=== PATIENT | male | born 1940 | race Caucasian/White ===

== ENCOUNTER 2019-05-14 10:48 | Emergency (ER) | payer MEDICARE, OTHER ==
[2019-05-14 11:22] VITALS: BP 156/69; PULSE 67; TEMP 97.9; BMI 23.1
--- NOTE | 2019-05-14 11:30 | PDOC ---
History of Present Illness - General Chief Complaint: Pain Stated Complaint: RT SHOULDER PAIN Time Seen by Provider: 05/14/19 11:30 History Source: Patient - History of Present Illness Initial Comments: 05/14/19 11:36 Chief complaint: Right shoulder pain Patient is an 78-year-old male with no significant medical history, does not take any meds who states he has few days of right shoulder pain, worse in the last day. Today he has pain when he tries to lift it up. Patient has no illness, no fever, no chest pain, no shortness of breath or any other complaints. He has not taken any medication for it. He has no numbness or swelling. GENERAL/CONSTITUTIONAL: No fever, weakness. dizziness HEAD, EYES, EARS, NOSE AND THROAT: No change in vision. No ear pain or discharge. No sore throat. CARDIOVASCULAR: No chest pain RESPIRATORY: No shortness of breath or cough GASTROINTESTINAL: No pain, nausea, vomiting, diarrhea or constipation GENITOURINARY: No dysuria MUSCULOSKELETAL: No neck or back pain, + right shoulder SKIN: No rash NEUROLOGIC: No headache, vertigo, loss of consciousness, or loss of sensation. GENERAL: The patient is awake, alert, and fully oriented, in no acute distress. HEAD: Normal with no signs of trauma. EYES: Pupils equal, round and reactive to light, sclera anicteric, conjunctiva clear. ENT: pharynx: no erythema, no exudate, uvula midline NECK: supple CHEST: clear, nontender, rr ABD: soft, nontender BACK: no tenderness or signs of injury EXTREMITIES: Mild tenderness to the right shoulder, no deformity, no signs of infection, no swelling, limited range of motion, neurovascular intact. Rest of extremities, normal range of motion, no edema. NEUROLOGICAL: Normal speech, normal gait. Cranial nerves II through XII grossly intact, no gross focal abnormalities SKIN: Warm, Dry Past History - Past Medical History Allergies/Adverse Reactions: Allergies Allergy/AdvReac Type Severity Reaction Status Date / Time No Known Allergies Allergy Verified 11/17/11 19:42 Home Medications: Ambulatory Orders Lidocaine 5% Patch [Lidoderm -] 1 patch TP DAILY #5 patch 05/14/19 Cancer: Yes (colon ca with resection) Diabetes: Yes - Surgical History Appendectomy: Yes Orthopedic Surgery: Yes (Back Surgery) - Immunization History Td Vaccination: Yes - Psycho Social/Smoking Cessation Hx Smoking Status: Yes Smoking History: Former smoker Have you smoked in the past 12 months: No Number of Cigarettes Smoked Daily: 0 If you are a former smoker, when did you quit?: 22 years ago Information on smoking cessation initiated: No Hx Alcohol Use: Yes (Occasional) Drug/Substance Use Hx: Yes Substance Use Type: Alcohol Hx Substance Use Treatment: No *Physical Exam - Vital Signs Last Vital Signs Temp Pulse Resp BP Pulse Ox 97.9 F 67 19 156/69 99 05/14/19 11:19 05/14/19 11:19 05/14/19 11:19 05/14/19 11:19 05/14/19 11:19 Medical Decision Making - Medical Decision Making 05/14/19 11:38 78-year-old male with no significant medical problems, not taking medications with right shoulder pain for a few days, no other complaints, no chest pain, no shortness of breath, no illness. Patient has pain when he moves the shoulder, nontraumatic. Exam of the shoulder shows no significant clinical findings other than mild tenderness and decreased range of motion. Neurovascular is intact. Patient is not taking pain medicines. Will give Tylenol, x-ray shoulder and reassess 05/14/19 13:08 X-ray shows no acute issue, has calcifications, consistent with patient's presentation. Will prescribe Tylenol and lidocaine patches. Patient will need to follow-up with orthopedist for further evaluation. Discussed issues, findings, results, applicable medications and treatments and follow-up. All these were understood and all questions were answered Discharge - Discharge Information Problems reviewed: Yes Clinical Impression/Diagnosis: Shoulder pain, right Qualifiers: Chronicity: acute Qualified Code(s): M25.511 - Pain in right shoulder Condition: Stable Disposition: HOME - Admission No - Additional Discharge Information Prescriptions: Lidocaine 5% Patch [Lidoderm -] 1 patch TP DAILY #5 patch - Follow up/Referral Referrals: Rohan Dawson MD [Staff Physician] - - Patient Discharge Instructions Patient Printed Discharge Instructions: DI for Shoulder Pain Additional Instructions: You can apply ice for 20 minutes every 2 hours for the next 2 days Motrin 400 mg every 6 hours for pain. You can use the lidocaine patch as directed. You can leave it on for 12 hours every day, it must be removed for the other 12 hours Call the orthopedist today - Post Discharge Activity
[2019-05-14] MEDS ORDERED: ACETAMINOPHEN 325 MG TABLET (FP) PO ONE (11:35)
[2019-05-14] MEDS ORDERED: ACETAMINOPHEN 325 MG TABLET (FP) ONE (11:37)
[2019-05-14] MEDS ORDERED: LIDOCAINE 5% TOPICAL PATCH TP ONE (12:59)
[2019-05-14] MEDS ORDERED: LIDOCAINE 5% TOPICAL PATCH ONE (13:03)
[2019-05-14] MEDS ORDERED: LIDOCAINE PATCH REMOVAL MC SCH (22:00)
== END 2019-05-14 13:27 | disposition home or self-care (01) ==
LOC: JERFT 10:48
DX: M25.511 Pain in right shoulder (principal); E11.9 Type 2 diabetes mellitus without complications; Z85.038 Personal history of other malignant neoplasm of large intestine; Z87.891 Personal history of nicotine dependence
CPT/HCPCS: 73030-TC-RT-FY; 99281-25

== ENCOUNTER 2024-06-01 16:27 | Emergency (ER) | payer OTHER ==
[2024-06-01 16:38] VITALS: BP 144/84; PULSE 63; RESP 16; BMI 21.4
[2024-06-01 18:31] LABS: BASO % 0.4 % (0-2.0); EOS % 1.3 % (0-4.5); HEMATOCRIT 36.3 % (35.4-49); LYMPH % 27.3 % (8-40); MCH 29.6 pg (25.7-33.7); MCHC 33.2 g/dl (32.0-35.9); MEAN CELL VOLUME 89.2 fl (80-96); MEAN PLT VOLUME 8.6 fl (7.5-11.1); MONO % 7.9 % (3.8-10.2); NEUT % 63.1 % (42.8-82.8); PLATELET COUNT 276 10^3/uL (134-434); RBC 4.07 M/mm3 (4.00-5.60); RDW 14.9 % (11.9-15.9); VENOUS O2 SATURATION 34.6 % (70-80); VENOUS PCO2 51.6 mmHg (38-52); VENOUS PH 7.358 (7.310-7.410); WHITE BLOOD COUNT 6.6 K/mm3 (4.0-10.0)
[2024-06-01 18:32] LABS: PH,URINE 5.5 (5.0-8.0); URINE APPEARANCE CLEAR; URINE BILIRUBIN NEGATIVE (NEGATIVE); URINE COLOR DK YELLOW; URINE GLUCOSE (UA) NEGATIVE (NEGATIVE); URINE KETONE TRACE (NEGATIVE); URINE LEUK ESTERASE NEGATIVE (NEGATIVE); URINE NITRITE NEGATIVE (NEGATIVE); URINE PROTEIN TRACE (NEGATIVE)
[2024-06-01 18:45] VITALS: TEMP 98.9
[2024-06-01 19:01] LABS: POTASSIUM 4.2 mmol/L (3.5-5.1)
[2024-06-01 19:03] LABS: ALBUMIN 3.5 g/dl (3.4-5.0); BLOOD UREA NITROGEN 29.6 mg/dL (7-18); CALCIUM 9.3 mg/dL (8.5-10.1)
[2024-06-01 19:07] LABS: CREATININE 1.1 mg/dL (0.55-1.3)
[2024-06-01 19:08] LABS: BILIRUBIN,TOTAL 0.4 mg/dL (0.2-1); TOT PROT 7.1 g/dl (6.4-8.2)
[2024-06-01 19:21] LABS: INR 1.05 (0.83-1.09); PROTHROMBIN TIME (PATIENT) 11.5 SEC (9.7-13.0)
== END 2024-06-01 23:05 | disposition home or self-care (01) ==
LOC: JER 16:27
DX: R62.7 Adult failure to thrive (principal); Z20.822 Contact with and (suspected) exposure to COVID-19
CPT/HCPCS: 0241U-QW; 36415; 71045-TC-FY; 80053; 81003; 82803; 83605; 84484; 85025; 85610; 85730; 86850; 86900; 86901; 87086; 93005; 93010; 99285-25